=== PATIENT | male | born 2005 | race American Indian/Alaskan Native ===

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

== ENCOUNTER 2025-02-24 15:07 | Outpatient (AMB) | payer OTHER, SELFPAY ==
--- NOTE | 2025-02-24 15:15 | A.OFFPC_ITS ---
Intake Visit Reasons: Paperwork Intake Note: Discuss paperwork Client Experience Manager Required: No Allergies amoxicillin Allergy (Severe, Verified 02/24/25 15:15) Hives Medication List - Last Reconciled 02/24/25 by Mago Ryamond MD albuterol sulfate 90 mcg/actuation (Ventolin HFA) 2 puffs inhalation Q4H PRN albuterol sulfate 2.5 mg inhalation Q4-6H PRN budesonide-formoterol 160-4.5 mcg/actuation (Symbicort) 2 puffs inhalation BID cholecalciferol (vitamin D3) (Vitamin D3) 50 mcg PO DAILY clonidine HCl 0.1 mg PO DAILY escitalopram oxalate 20 mg PO DAILY hydroxyzine HCl mg PO lamotrigine 25 mg PO DAILY loratadine 10 mg PO DAILY melatonin 10 mg PO BEDTIME montelukast 10 mg PO DAILY Tobacco use date assessed: 02/24/25 Dental Screening Dental Screen Date: 03/27/24 HPI HPI Comments History of Present Illness Details The patient a 20 year old male with a past medical history of autism spectrum disorder, tic disorder/Tourettes syndrom, anxiety and depression presenting for follow up. He is accompanied by his mother today who provides most of the history. Patient is verbal but does not speak often Anxiety/depression-On lamictal, clonidine, lexapro. Was able to meet with nutrition previously. Had been gaining weight with remeron Follows with psych DHRUV Seymour. Recommend neuropsych evaluation including IQ testing which is being scheduled at [facility]. Unable to manage own medications. Asthma-stable on singular, qvar. Has a nebulizer at home. He also uses air conditioner when humid to improve breathing Constipation-doing okay on medications. Taking magnesium daily Was previously following with [facility] gastro[facility] Dental visits UTD ROS CONSTITUTIONAL: Denies weight loss, fever and chills. HEENT: Denies changes in vision and hearing. RESPIRATORY: Denies SOB and cough. CV: Denies palpitations and CP GI: Denies abdominal pain, nausea, vomiting and diarrhea. MSK: Denies new myalgia and joint pain. SKIN: Denies rash and pruritus. NEUROLOGICAL: Denies headache PSYCHIATRIC: Denies recent changes in mood. PHYSICAL EXAM: GENERAL: Alert and oriented x 3. NAD EYES: EOMI. Anicteric. HENT: Moist mucous membranes. No scleral icterus. No cervical lymphadenopathy. LUNGS: Clear to auscultation bilaterally. CARDIOVASCULAR: Regular rate and rhythm. No murmur. No JVD. ABDOMEN: Soft, non-tender +bs EXTREMITIES: No edema. Non-tender. SKIN: No rashes or lesions. Warm. NEUROLOGIC: No focal neurological deficits. CN II-XII grossly intact PSYCHIATRIC: Cooperative. Appropriate mood and affect [facility] Social History Housing: House Patient Tobacco Use Status: Never used Tobacco e-Cigarette/Vaping Use: Never Used Second Hand Smoke Exposure: No service: No Current occupational status: student Cognitive needs: No Hearing needs: No Vision needs: No Questionnaire Thrive Questionnaire Date Thrive assessed: 03/27/24 CHELA-7 AMB Questionnaire CHELA-7 Date CHELA - 7 assessed: 03/27/24 Source: Developed by Drs. Corby Carrera, Izabella Lu, Jermaine Dewitt and colleagues, with an educational kathleen from [employer]. Physical exam (Primary Care) Tobacco/Smoking Status: Tobacco use Status Tobacco use date assessed 02/24/25 02/24/25 15:26 Patient Tobacco Use Status Never used Tobacco 02/24/25 15:17 e-Cigarette/Vaping Use Never Used 02/24/25 15:17 Thrive Assessment: Date of Thrive Assessment Date Thrive assessed 03/27/24 02/24/25 15:17 Coding Level of Care Code Est Pt Level 4 (65106) Diagnoses Mood disorder F39 Autism spectrum disorder F84.0 Assessment & Plan Assessment & Plan (1) Mood disorder: Code(s): F39 - Unspecified mood [affective] disorder Category: Medical (2) Autism spectrum disorder: Comment: Continue follow up with psych provider Code(s): F84.0 - Autistic disorder Category: Medical Plan Patient accompanied by mom who helps with ADLS, medication management With her assistance his chronic medical conditions are stable He is referred for Neuropsychiatric evaluation He will continue follow up with behavoiral health Asthma has been stable Orders: Orders Complete Blood Count Auto Diff 02/24/25 E66.9 - Obesity, unspecified, F39 - Unspecified mood [affective] disorder, F84.0 - Autistic disorder Comprehensive Met. Panel 02/24/25 E66.9 - Obesity, unspecified, F39 - Unspecified mood [affective] disorder, F84.0 - Autistic disorder Lipid Panel 02/24/25 E66.9 - Obesity, unspecified, F39 - Unspecified mood [affective] disorder, F84.0 - Autistic disorder TSH reflex Free T4 02/24/25.9 - Obesity, unspecified, F39 - Unspecified mood [affective] disorder, F84.0 - Autistic disorder Hemoglobin A1c 02/24/25.9 - Obesity, unspecified
== END 2025-02-24 16:51 | disposition home or self-care (01) ==
LOC: HO.HMCFM 15:07
PROVIDERS: PCP Internal Medicine; Visit Provider Internal Medicine
DX: F39 Unspecified mood [affective] disorder (principal); F84.0 Autistic disorder

== ENCOUNTER → 2025-02-24 15:07 | Outpatient (BNVA) | payer OTHER, SELFPAY | PROVIDERS: PCP Internal Medicine; Visit Provider Internal Medicine | DX: F39 Unspecified mood [affective] disorder (principal); F84.0 Autistic disorder; E66.9 Obesity, unspecified | CPT/HCPCS: 99212 ==

== ENCOUNTER 2025-08-19 11:19 | Outpatient (AMB) | payer OTHER, SELFPAY ==
[2025-08-19 11:27] VITALS: BP 110/86; PULSE 99; RESP 14; TEMP 37; O2SAT 98; BMI 41.1
--- NOTE | 2025-08-19 11:27 | A.OFFPC_ITS ---
Vital Signs 08/19/25 11:27 Height 5 ft 7 in Weight 262 lb 6 oz BMI 41.1 BP 110/86 Blood Pressure Location Lt brachial Respiration 14 Pulse 99 Pulse Source Pulse Oximeter Temp 98.6 F Temp Source Oral Pulse Oximetry (%) 98 Oxygen Delivery Method Room Air Intake Visit Reasons: Physical Intake Note: Physical Brush Holder Inspector Required: No Allergies amoxicillin Allergy (Severe, Verified 08/19/25 11:29) Hives Tobacco use date assessed: 08/19/25 Dental Screening Dental Screen Date: 08/19/25 Did you have a dental visit in the last 12 months?: Yes Did you have a dental problem in the last 6 months where you did not have access to dental care?: No Was dental information given to patient?: Patient has dentist HPI HPI Comments History of Present Illness Details The patient a 20 year old male with a past medical history of autism spectrum disorder, tic disorder/Tourettes syndrom, anxiety and depression presenting for physical exam He is accompanied by his mother today who provides most of the history. Patient speaks infrequently but does answer appropriately when directly asked a question Anxiety/depression-On multiple medications. Their were some recent adjustments. Hist mother administers his medications Follows with psych DHRUV Seymour, now following with [facility], Suzanne Griggs and follows with Patricia Nuñez Patient underwent interval neuropsychiatric testing. This found that Georges does not have an intellectual disability, no cognitive indication that he needs a guardian to help him understand information or decision. They did defer to PCP and behavioral health opinion as to whether he requries decision making support for a medical or mental health reason. It was noted that research supports that cognitively able inidividuals with autism spectrum disorders can still display adaptive skills far below what would be expected given their intellectual potential. Patient was recommended to apply for eligibility with the Department of Developmental Services Asthma-stable on singular, qvar, prn nebs. He also uses air conditioner when humid to improve breathing Constipation-doing okay on medications. Taking magnesium daily Was previously following with [facility] gastro[facility] Dental visits UTD ROS CONSTITUTIONAL: Denies weight loss, fever and chills. HEENT: Denies changes in vision and hearing. RESPIRATORY: Denies SOB and cough. CV: Denies palpitations and CP GI: Denies abdominal pain, nausea, vomiting and diarrhea. MSK: Denies new myalgia and joint pain. SKIN: Denies rash and pruritus. NEUROLOGICAL: Denies headache PSYCHIATRIC: Denies recent changes in mood. PHYSICAL EXAM: GENERAL: Alert and oriented x 3. NAD EYES: EOMI. Anicteric. HENT: Moist mucous membranes. No scleral icterus. No cervical lymphadenopathy. LUNGS: Clear to auscultation bilaterally. CARDIOVASCULAR: Regular rate and rhythm. No murmur. No JVD. ABDOMEN: Soft, non-tender +bs EXTREMITIES: No edema. Non-tender. SKIN: No rashes or lesions. Warm. NEUROLOGIC: No focal neurological deficits. CN II-XII grossly intact PSYCHIATRIC: Cooperative. Appropriate mood and affect [facility] Social History Housing: House Alcohol intake: never Patient Tobacco Use Status: Never used Tobacco e-Cigarette/Vaping Use: Never Used Second Hand Smoke Exposure: No service: No Current occupational status: student Cognitive needs: No Hearing needs: No Vision needs: No Questionnaire Thrive Questionnaire Date Thrive assessed: 02/24/25 I am a: Patient What is your living situation today?: I have a steady place to live Within the past 12 months, did the food you bought not last and you didn't have the money to get more?: I choose not to answer this question Within the past 12 months, did you worry whether your food would run out before you got money to buy more?: I choose not to answer this question Do you have trouble paying for medicines?: I choose not to answer this question Do you have trouble getting transportation to medical appointments?: I choose not to answer this question Do you have trouble paying your heating and electricity bill?: I choose not to answer this question Do you have trouble taking care of your child, family member or friend?: I choose not to answer this question Do you have trouble with day-to-day activities such as bathing, preparing meals, shopping, managing finances, etc.?: I choose not to answer this question Are you currently unemployed and looking for a job?: I choose not to answer this question Are you interested in more education?: I choose not to answer this question Please select the resources that you would like help with: None Currently or been in a relationship where the following occur: I choose not to answer THRIVE Score: 0 AUDIT C Alcohol Use Questionnaire (AUDIT-C) 1. How often do you have a drink containing alcohol?: Never 3. How often do you have six or more drinks on one occasion?: Never Total Score: 0 CHELA-7 AMB Questionnaire CHELA-7 Date CHELA - 7 assessed: 03/27/24 Source: Developed by Drs. Corby Carrera, Izabella Lu, Jermaine Dewitt and colleagues, with an educational kathleen from [employer]. Physical exam (Primary Care) Vital Signs: Last Vital Signs Temp 98.6 F 08/19/25 11:27 Pulse 99 08/19/25 11:27 Resp 14 08/19/25 11:27 BP 110/86 08/19/25 11:27 Pulse Ox 98 08/19/25 11:27 Oxygen Delivery Method Room Air 08/19/25 11:27 BMI result Body Mass Index 41.1 Tobacco/Smoking Status: Tobacco use Status Tobacco use date assessed 02/24/25 08/19/25 11:27 Patient Tobacco Use Status Never used Tobacco 08/19/25 11:27 e-Cigarette/Vaping Use Never Used 08/19/25 11:27 Thrive Assessment: Date of Thrive Assessment Date Thrive assessed 02/24/25 08/19/25 11:27 Currently or been in a relationship where the following occur: I choose not to answer Coding Level of Care Code Est Pt Prev Care 18-39y(68091) Diagnoses Encounter for physical examination Z00.00 Autism spectrum disorder F84.0 Obesity, unspecified classification, unspecified obesity type, unspecified whether serious comorbidity present E66.9 Obesity classification: unspecified obesity classification Obesity type: unspecified obesity type Serious obesity comorbidity presence: unspecified whether serious comorbidity present Mood disorder F39 Assessment & Plan Assessment & Plan (1) Encounter for physical examination: Code(s): Z00.00 - Encounter for general adult medical examination without abnormal findings (2) Autism spectrum disorder: Comment: Continue follow up with psych provider Code(s): F84.0 - Autistic disorder Category: Medical (3) Obesity: Comment: due to calories & medication Code(s): E66.9 - Obesity, unspecified Category: Medical Qualifiers: Obesity classification: unspecified obesity classification Obesity type: unspecified obesity type Serious obesity comorbidity presence: unspecified whether serious comorbidity present Qualified Code(s): E66.9 - Obe sity, unspecified (4) Mood disorder: Code(s): F39 - Unspecified mood [affective] disorder Category: Medical Plan 20 year old male presenting for CPE Interval history reviewed Preventive measures for age discussed Asthma is stable on current medications BH-follows with psychiatry At this point I do not think patient can act in his best interest medically. Perhaps with DDS referral and adaptive skills training but that is tbd. Orders: Orders Comprehensive Met. Panel Today E66.9 - Obesity, unspecified, F39 - Unspecified mood [affective] disorder, R63.5 - Abnormal weight gain Lipid Panel Today E66.9 - Obesity, unspecified, F39 - Unspecified mood [affective] disorder, R63.5 - Abnormal weight gain CT NG by PCR Urine Today E66.9 - Obesity, unspecified, F39 - Unspecified mood [affective] disorder, R63.5 - Abnormal weight gain Medications: New Culturelle Probiotic-Multivit 1 billion cell- 1 gram (mv-mn-B.coag-B.subtilis-inulin) 1 tab PO DAILY 90 tabs 3RF NS albuterol sulfate 2.5 mg (3 mL) inhalation Q6H 90 mL 0RF Refilled cholecalciferol (vitamin D3) (Vitamin D3) 50 mcg PO DAILY 90 tabs 3RF
== END 2025-08-19 12:35 | disposition home or self-care (01) ==
LOC: HO.HMCFM 11:20
PROVIDERS: PCP Internal Medicine; Visit Provider Internal Medicine
DX: Z00.00 Encounter for general adult medical examination without abnormal findings (principal); F84.0 Autistic disorder; E66.9 Obesity, unspecified; Z68.41 Body mass index [BMI] 40.0-44.9, adult; F39 Unspecified mood [affective] disorder

== ENCOUNTER → 2025-08-19 11:19 | Outpatient (BNVA) | payer OTHER, SELFPAY | PROVIDERS: PCP Internal Medicine; Visit Provider Internal Medicine | DX: Z00.00 Encounter for general adult medical examination without abnormal findings (principal); F84.0 Autistic disorder; E66.9 Obesity, unspecified; Z68.41 Body mass index [BMI] 40.0-44.9, adult; F39 Unspecified mood [affective] disorder; Z71.3 Dietary counseling and surveillance | CPT/HCPCS: 99395 ==